=== PATIENT | male | born 1980 ===

== ENCOUNTER → 2021-07-18 | Outpatient (CLI) | payer MEDICAID ==
--- NOTE | 2021-07-18 11:02 | Diagnostic Imaging Report ---
INDICATION: Injury to the left shoulder 5 months ago. TIME OF EXAM: 10:37 AM No prior studies are available for comparison. Glenohumeral and acromioclavicular alignment are normal. Acromiohumeral space is normal. No fracture or dislocation is identified. IMPRESSION: No acute bony abnormality is detected. Dictated by: Dictated on workstation # [id number]
== END ==
LOC: RAD FS 10:30
PROVIDERS: ATTEND Registered Nurse Emergency
DX: S49.92XA Unspecified injury of left shoulder and upper arm, initial encounter (principal); X58.XXXA Exposure to other specified factors, initial encounter
CPT/HCPCS: 73030

== ENCOUNTER → 2021-07-31 | Outpatient (CLI) | payer MEDICAID | LOC: ORTHO 15:06 | PROVIDERS: ATTEND Orthopaedic Surgery | DX: M24.9 Joint derangement, unspecified (principal) ==

== ENCOUNTER → 2021-08-11 | Outpatient (CLI) | payer MEDICAID ==
--- NOTE | 2021-08-11 15:29 | Diagnostic Imaging Report ---
EXAMINATION: Magnetic resonance imaging of the left shoulder without contrast. DATE: August 11, 2021. COMPARISON: Left shoulder radiographs July 18, 2021. HISTORY: 40-year-old male, left shoulder pain. TECHNIQUE: Magnetic Resonance Imaging sequences were performed of the shoulder without contrast. FINDINGS: There are motion limitations of the exam. ROTATOR CUFF, LIGAMENTS, TENDONS, AND MUSCLES: There appears to be a full thickness full tear of the supraspinatus tendon with tendon retraction to the level of the superior humeral head measuring 2.2 cm. There is infraspinatus tendinopathy. There is teres minor tendinopathy. There is very limited assessment of the subscapularis tendon which is without identified full-thickness tear. There is fatty atrophy of the teres minor muscle. LONG HEAD OF BICEPS: The biceps labral attachment and long head of the biceps tendon is intact. The long head of the biceps tendon is normally positioned within the bicipital groove. GLENOHUMERAL JOINT: The humeral head is well positioned relative to the glenoid. There is very limited labral assessment given degree of motion limitations on the axial sequence in particular. There is no identified labral tear or paralabral cyst. The articular cartilage appears grossly intact. There is no glenohumeral joint effusion. ACROMIOCLAVICULAR JOINT: The acromioclavicular joint is normally aligned. The coracoclavicular and coracoacromial ligaments are intact. There are mild acromioclavicular degenerative changes without large undersurface osteophyte. BONE: There is no os acromiale. There is no Hill-Sachs deformity. There is no acute fracture, bone contusion, or evidence of osteonecrosis. BURSAE AND SOFT TISSUES: The bursae and soft tissue surrounding the shoulder are unremarkable. IMPRESSION: 1. Motion limited exam. 2. Probable full thickness, full width tear of the supraspinatus tendon with tendon retraction to the level of the superior humeral head. Fatty atrophy of the terres minor muscle. 3. Mild acromioclavicular degenerative changes without undersurface osteophyte. 4. No obvious labral tear. Additional glenohumeral joint assessment is unremarkable. 5. No acute fracture, bone contusion, or evidence of osteonecrosis. Dictated by: Dictated on workstation # [id number]
== END ==
LOC: RAD 13:49
PROVIDERS: ATTEND Orthopaedic Surgery
DX: M19.012 Primary osteoarthritis, left shoulder (principal); M62.512 Muscle wasting and atrophy, not elsewhere classified, left shoulder; M24.812 Other specific joint derangements of left shoulder, not elsewhere classified
CPT/HCPCS: 73221

== ENCOUNTER → 2021-08-28 | Outpatient (CLI) | payer MEDICAID | LOC: ORTHO 14:18 | PROVIDERS: ATTEND Orthopaedic Surgery | DX: M75.102 Unspecified rotator cuff tear or rupture of left shoulder, not specified as traumatic (principal) | CPT/HCPCS: 99213 ==

== ENCOUNTER 2021-08-29 05:35 | Outpatient (CLI) | payer MEDICAID ==
[~2021-08-29] VITALS: Ht 165.1 cm; Wt 92.0 kg
== END 2021-08-29 16:59 | disposition home or self-care (01) ==
LOC: PREOP 05:35
PROVIDERS: ATTEND Orthopaedic Surgery
DX: Z01.818 Encounter for other preprocedural examination (principal)

== ENCOUNTER 2021-09-03 06:03 | Day surgery (SDC) | payer MEDICAID ==
[~2021-09-03] VITALS: Ht 165 cm; Wt 92.0 kg
[2021-09-03] VITALS (11 sets, daily range): BP systolic 97–118; BP diastolic 72–96
[2021-09-03] MEDS ORDERED: EPINEPHrine INJECTION 1 MG/ML AMP ONE (06:32)
[2021-09-03] MEDS ORDERED: LIDOCAINE PF 2% 5 ML (XYLOCAINE) VIAL ONE ×2 (06:33→09:07)
[2021-09-03] MEDS ORDERED: ROPIVACAINE 5MG/ML 30ML VIAL ONE (06:33)
[2021-09-03] MEDS ORDERED: MIDAZOLAM 2 MG/2 ML (VERSED) VIAL ONE (06:33)
[2021-09-03] MEDS: LACTATED RINGERS 1,000 ML IV PRN ×3 (06:35→09:52)
[2021-09-03] MEDS ORDERED: fentaNYL INJ 100 MCG/2 ML AMP ONE (06:59)
--- NOTE | 2021-09-03 07:10 | Progress Note-Pre Operative ---
Pre-Operative Progress Note H&P Reviewed The H&P was reviewed, patient examined and no changes noted. Date Seen by Provider: Sep 03, 2021 Time Seen by Provider: 07:00 Date H&P Reviewed: Sep 03, 2021 Time H&P Reviewed: 07:00 Pre-Operative Diagnosis: Left Rotator Cuff Tear BRIA MERAZ MD Sep 03, 2021 07:10
[2021-09-03] MEDS ORDERED: ceFAZolin 2 GM IV Premixed 50 ML ONE (07:15)
[2021-09-03] MEDS ORDERED: ceFAZolin 2 GM IV Premixed 50 ML IV ONE (07:30)
[2021-09-03] MEDS ORDERED: proPOfol 200 MG/20 ML (DIPRIVAN) VIAL IV ONE (09:06)
[2021-09-03] MEDS ORDERED: GLYCOPYRROLATE 0.2 MG/ML (ROBINUL) 2 ML VIAL ONE (09:07)
[2021-09-03] MEDS ORDERED: ROCURONIUM 10 MG/ML 5 ML SYRINGE IV ONE (09:07)
[2021-09-03] MEDS ORDERED: ONDANSETRON 4 MG/2 ML (SDV) Z0FRAN ONE (09:07)
[2021-09-03] MEDS ORDERED: OXC5T PO (09:07)
[2021-09-03] MEDS ORDERED: NEOSTIGMINE 3 MG/3 ML VIAL ONE (09:07)
[2021-09-03] MEDS ORDERED: SEVOFLURANE (ULTANE) 15 ML INHAL SOLN ONE (09:08)
--- NOTE | 2021-09-03 09:13 | Operative Report - Ortho ---
Operative Report Surgeon (s)/Armhole Raiser Lockstitch (s) Surgeon BRIA MERAZ MD Armhole Raiser Lockstitch n/a Pre-Operative Diagnosis Left Rotator Cuff Tear Post-Operative Diagnosis Left Rotator Cuff Tear, Left Biceps Tendinopathy Operative Report Date of Procedure: Sep 03, 2021 Name of Procedure Performed: Left Shoulder Arthroscopy with Rotator Cuff Repair and Biceps Tenotomy Description & Findings After obtaining informed consent and marking the patient in the preoperative holding area, patient received regional anesthesia. Patient did receive intravenous antibiotics. Patient was taken to the operating room. General anesthesia was induced and the patient was placed in the lateral decubitus position with the left side up. Left upper extremity was prepped and draped in the usual sterile fashion. Surgical timeout was taken. Posterior portal was established. Diagnostic glenohumeral arthroscopy was performed with the following findings: biceps tendon with longitudinal split and fraying, intact articular cartilage, no loose bodies in the axillary pouch, complete tear of the rotator cuff, some degenerative fraying of the labrum. Anterior portal was established and shaver was inserted. The undersurface of the cuff tear and the labrum were debrided to stable borders. Probe was inserted and the biceps demonstrated longitudinal split exiting the articular space. A biter was inserted and a biceps tenotomy was performed. Shaver was then inserted the remnant of the biceps tendon was debrided to the labrum. Instruments were then taken up into the subacromial space. Lateral portal was established. Shaver was used to remove bursal tissue. Rotator cuff footprint was debrided to bleeding bone. Edge of the rotator cuff was debrided. Two medial row anchors were then placed. Tape sutures from each anchor were passed through the cuff using a needle suture passer and a loop suture. One limb from each medial anchor was then taken to the lateral portal. A punch was used to make a socket for an Cory anchor. The limbs from each medial row anchor were then passed through the Cory. The Cory was seated by hand and the sutures were tensioned. The anchor was then deployed by hand. Tails of the suture were cut. A second [place] was then placed posterior to the first with final 2 limbs of suture; punched, seated by hand, tension, and then deployed. Tails were cut. Rotator cuff repair was viewed from the posterior and lateral portals and demonstrated good approximation and compression to the footprint. Instruments were removed. Incisions were closed with 3-0 nylon sutures. Wounds were dressed with xeroform, 4x4s, ABD, and tape. Patient was placed in an abduction sling postoperatively. Anesthesia Type General plus Regional Estimated Blood Loss minimal Specimen(s) collected/removed None BRIA MERAZ MD Sep 03, 2021 09:13
--- NOTE | 2021-09-03 09:42 | Anesthesia-General Post-Op ---
General Patient Condition Mental Status/LOC: Same as Preop Cardiovascular: Satisfactory Nausea/Vomiting: Absent Respiratory: Satisfactory Pain: Controlled Complications: Absent Post Op Complications Complications None Follow Up Care/Instructions Patient Instructions None needed. Anesthesia/Patient Condition Patient Condition Patient is doing well, no complaints, stable vital signs, no apparent adverse anesthesia problems. No complications reported per nursing. NICOLE HERNANDEZ CRNA Sep 03, 2021 09:42
[2021-09-03] MEDS ORDERED: ONDANSETRON 4 MG/2 ML (SDV) Z0FRAN IVP PRN (09:45)
[2021-09-03] MEDS ORDERED: fentaNYL INJ 100 MCG/2 ML AMP IVP ONE (09:45)
[2021-09-03] MEDS ORDERED: HYDROmorphone 2 MG/ML VIAL (DILAUDID) IV ONE (09:45)
== END 2021-09-03 12:10 ==
LOC: SDC 06:03
PROVIDERS: ATTEND Orthopaedic Surgery
DX: M75.122 Complete rotator cuff tear or rupture of left shoulder, not specified as traumatic (principal); M75.22 Bicipital tendinitis, left shoulder; E66.9 Obesity, unspecified; Z68.34 Body mass index [BMI] 34.0-34.9, adult
CPT/HCPCS: 87081

== ENCOUNTER → 2021-09-16 | Outpatient (CLI) | payer MEDICAID ==
[~2021-09-16] MED LIST: OXC5T PO
== END ==
LOC: ORTHO 14:37
PROVIDERS: ATTEND Orthopaedic Surgery
DX: Z47.89 Encounter for other orthopedic aftercare (principal); E78.2 Mixed hyperlipidemia

== ENCOUNTER → 2021-09-30 | Outpatient (CLI) | payer MEDICAID | LOC: ORTHO 16:08 | PROVIDERS: ATTEND Orthopaedic Surgery | DX: Z47.89 Encounter for other orthopedic aftercare (principal); Z98.890 Other specified postprocedural states ==

== ENCOUNTER → 2021-10-23 | Outpatient (CLI) | payer MEDICAID | LOC: ORTHO 13:35 | PROVIDERS: ATTEND Orthopaedic Surgery | DX: Z47.89 Encounter for other orthopedic aftercare (principal); Z98.890 Other specified postprocedural states ==

== ENCOUNTER → 2021-11-20 | Outpatient (CLI) | payer MEDICAID | LOC: ORTHO 13:33 | PROVIDERS: ATTEND Orthopaedic Surgery | DX: Z47.89 Encounter for other orthopedic aftercare (principal) ==